=== PATIENT | male | born 1985 | race African-American/Black ===

== ENCOUNTER 2017-03-30 08:26 | Emergency (ER) | payer OTHER ==
[~2017-03-30] VITALS: Ht 177.8 cm; Wt 81.6 kg
[2017-03-30 08:27] VITALS: BP 180/113; Ht 177.8 cm; Wt 81.6 kg
== END 2017-03-30 09:34 | disposition home or self-care (01) ==
LOC: ED 08:26
DX: Z02.89 Encounter for other administrative examinations (principal)
CPT/HCPCS: 83880

== ENCOUNTER 2017-07-11 09:02 | Inpatient (IN) | payer OTHER ==
[~2017-07-11] VITALS: Ht 180.3 cm; Wt 78.0 kg
[2017-07-11 09:25] VITALS: Ht 180.3 cm; Wt 78.0 kg
[2017-07-11 09:59] LABS: BASOPHIL % 0.3 % (0-2); PLATELET COUNT 349 x10^3mcL (130-400)
[2017-07-11 10:01] LABS: RED CELL DISTRIBUTION WIDTH 15.7 % (11.5-14.5)
[2017-07-11 10:13] LABS: ALBUMIN 4.4 g/dL (3.4-5.0); BILIRUBIN TOTAL 0.67 mg/dL (0.20-1.00); CALCIUM 9.8 mg/dL (8.5-10.1); CARBON DIOXIDE 16.9 mmol/L (21-32); POTASSIUM SERUM 5.5 mmol/L (3.5-5.1)
[2017-07-11 10:24] LABS: TOTAL PROTEIN, SERUM 9.6 g/dL (6.4-8.2)
[2017-07-11 10:32] LABS: CREATININE SERUM 4.7 mg/dL (0.7-1.3)
[2017-07-11 13:19] LABS: UA SPECIFIC GRAVITY 1.025 (1.005-1.035); microscopic required? YES; urine erythrocyte 2+ (NEGATIVE)
[2017-07-11 13:24] LABS: PHOSPHOROUS 7.3 mg/dL (2.5-4.9)
[2017-07-11 13:29] LABS: T3 TOTAL 0.9 ng/mL
[2017-07-11 13:34] LABS: MAGNESIUM 4.4 mg/dL (1.8-2.4)
[2017-07-11 13:35] LABS: FREE T4 1.35 ng/dL (0.76-1.46); FREE THYROXINE INDEX 3.3 ug/dL (1.4-4.5); T4(THYROXINE) 9.5 ug/dL (4.7-13.3)
[2017-07-11 15:21] VITALS: BP 132/69
[2017-07-11 16:19] VITALS: BP 132/69
[2017-07-11 16:30] LABS: AMPHETAMINE QUAL UR NONE DETECTED (NEG <=1000)
[2017-07-11 18:24] LABS: ALBUMIN 3.6 g/dL (3.4-5.0); CALCIUM 8.8 mg/dL (8.5-10.1); CARBON DIOXIDE 20.3 mmol/L (21-32); CHLORIDE SERUM 129 mmol/L (98-107); CREATININE SERUM 3.1 mg/dL (0.7-1.3); GFR1 25 mL/min; GLUCOSE SERUM 97 mg/dL (74-106); PHOSPHOROUS 7.5 mg/dL (2.5-4.9); POTASSIUM SERUM 5.3 mmol/L (3.5-5.1)
[2017-07-11 18:26] LABS: SODIUM SERUM 164 mmol/L (136-145)
[2017-07-11 19:30] VITALS: BP 154/93
[2017-07-11 23:06] VITALS: BP 127/79
[2017-07-12 03:21] VITALS: BP 136/78
[2017-07-12 05:44] LABS: BASOPHIL % 0.3 % (0-2); PLATELET COUNT 245 x10^3mcL (130-400)
[2017-07-12 06:09] LABS: CALCIUM 8.4 mg/dL (8.5-10.1); CARBON DIOXIDE 28.6 mmol/L (21-32); CREATININE SERUM 1.7 mg/dL (0.7-1.3); MAGNESIUM 3.2 mg/dL (1.8-2.4); PHOSPHOROUS 4.6 mg/dL (2.5-4.9); POTASSIUM SERUM 4.9 mmol/L (3.5-5.1)
[2017-07-12 07:28] VITALS: BP 139/81
[2017-07-12] MEDS ORDERED: LITHIUM CARBON300 M1 PO (09:21)
[2017-07-12] MEDS ORDERED: ABILIFY10 M2 PO (09:22)
[2017-07-12] MEDS ORDERED: ABILIFY15 M1 PO (09:22)
[2017-07-12 11:05] LABS: BILIRUBIN DIRECT 0.11 mg/dL (0.0-0.2); BILIRUBIN TOTAL 0.5 mg/dL (0.20-1.00); TOTAL PROTEIN, SERUM 6.9 g/dL (6.4-8.2)
[2017-07-12 11:08] LABS: ALBUMIN 3.1 g/dL (3.4-5.0)
[2017-07-12 11:11] VITALS: BP 132/75
[2017-07-12 15:27] VITALS: BP 114/76
[2017-07-12 19:21] VITALS: BP 133/78
[2017-07-12 23:32] VITALS: BP 141/79
[2017-07-13 03:09] VITALS: BP 138/81
[2017-07-13 05:35] LABS: BASOPHIL % 0.2 % (0-2); PLATELET COUNT 195 x10^3mcL (130-400)
[2017-07-13 05:41] LABS: RED CELL DISTRIBUTION WIDTH 15.1 % (11.5-14.5)
[2017-07-13 05:53] LABS: CALCIUM 8.2 mg/dL (8.5-10.1); CARBON DIOXIDE 30.7 mmol/L (21-32); CHLORIDE SERUM 114 mmol/L (98-107); CREATININE SERUM 1.1 mg/dL (0.7-1.3); GFR1 > 60 mL/min; GLUCOSE SERUM 101 mg/dL (74-106); POTASSIUM SERUM 4.3 mmol/L (3.5-5.1); SODIUM SERUM 147 mmol/L (136-145)
[2017-07-13 07:45] VITALS: BP 122/74
[2017-07-13 11:34] VITALS: BP 119/79
[2017-07-13 16:57] VITALS: BP 123/70
[2017-07-13 21:51] VITALS: BP 117/65
[2017-07-14 06:30] LABS: BASOPHIL % 0.3 % (0-2); PLATELET COUNT 195 x10^3mcL (130-400)
[2017-07-14 06:36] VITALS: BP 128/89
[2017-07-14 06:40] LABS: CALCIUM 8.6 mg/dL (8.5-10.1); CARBON DIOXIDE 29.5 mmol/L (21-32); CHLORIDE SERUM 114 mmol/L (98-107); GFR1 > 60 mL/min; GLUCOSE SERUM 93 mg/dL (74-106); MAGNESIUM 2.9 mg/dL (1.8-2.4); PHOSPHOROUS 2.6 mg/dL (2.5-4.9); POTASSIUM SERUM 4.4 mmol/L (3.5-5.1); SODIUM SERUM 147 mmol/L (136-145)
[2017-07-14 06:54] LABS: RED CELL DISTRIBUTION WIDTH 15.2 % (11.5-14.5)
[2017-07-14 09:41] VITALS: BP 118/81; BP 134/81
[2017-07-14 13:09] VITALS: BP 119/76
[2017-07-14 16:10] VITALS: BP 131/81
[2017-07-14 21:17] VITALS: BP 120/75
[2017-07-15 05:37] VITALS: BP 123/90
[2017-07-15 06:28] LABS: CALCIUM 8.5 mg/dL (8.5-10.1); CARBON DIOXIDE 24.2 mmol/L (21-32); CHLORIDE SERUM 111 mmol/L (98-107); CREATININE SERUM 0.9 mg/dL (0.7-1.3); GFR1 > 60 mL/min; GLUCOSE SERUM 94 mg/dL (74-106); MAGNESIUM 2.4 mg/dL (1.8-2.4); PHOSPHOROUS 2.9 mg/dL (2.5-4.9); POTASSIUM SERUM 4.1 mmol/L (3.5-5.1); SODIUM SERUM 142 mmol/L (136-145)
[2017-07-15 06:29] LABS: IRON 31 ug/dL (65-170); TOTAL IRON BINDING CAPACITY 150 ug/dL (250-450)
[2017-07-15 08:39] LABS: BASOPHIL % 0.2 % (0-2); PLATELET COUNT 206 x10^3mcL (130-400)
[2017-07-15 08:56] LABS: RED CELL DISTRIBUTION WIDTH 15.3 % (11.5-14.5)
[2017-07-15 09:35] VITALS: BP 135/85
[2017-07-15 11:56] LABS: RED BLOOD CELLS 4.63 M/mm3 (4.52-5.90)
[2017-07-15 12:47] VITALS: BP 124/79
[2017-07-15] MEDS ORDERED: HYDROCHLOROTH12.5 M3 PO (16:50)
[2017-07-15 17:57] VITALS: BP 135/84
== END 2017-07-15 18:09 | disposition home or self-care (01) | DRG 682 ==
LOC: ED 09:02 → DU 10:40 → IC 10:40 → DU 07-13 11:54
PROVIDERS: Emergency Medicine; Family Medicine; Family Medicine Sports Medicine
PROC: 02HV33Z Insertion of Infusion Device into Superior Vena Cava, Percutaneous Approach (ICD-10-PCS; principal; 2017-07-11)
PROC: B548ZZA Ultrasonography of Superior Vena Cava, Guidance (ICD-10-PCS; 2017-07-11)
PROC: 5A1D70Z Performance of Urinary Filtration, Intermittent, Less than 6 Hours Per Day (ICD-10-PCS; 2017-07-11)
PROC: 5A1D70Z Performance of Urinary Filtration, Intermittent, Less than 6 Hours Per Day (ICD-10-PCS; 2017-07-12)
DX: N17.0 Acute kidney failure with tubular necrosis (principal); G93.41 Metabolic encephalopathy; E87.0 Hyperosmolality and hypernatremia; E86.0 Dehydration; E87.5 Hyperkalemia; J98.2 Interstitial emphysema; F25.0 Schizoaffective disorder, bipolar type; E87.8 Other disorders of electrolyte and fluid balance, not elsewhere classified; E78.5 Hyperlipidemia, unspecified; R31.9 Hematuria, unspecified; D64.9 Anemia, unspecified; Z88.6 Allergy status to analgesic agent; Z88.5 Allergy status to narcotic agent
CPT/HCPCS: 36556; 83880; 84439; 97110-GP; 97116-GP; 97530-GP; G0480; J0515; J1170; J1630; J1642; J1644; J2060; J7030; J7040; Q0092

== ENCOUNTER 2017-08-05 12:58 | Emergency (ER) | payer OTHER ==
[~2017-08-05] VITALS: Ht 177.8 cm; Wt 80.3 kg
[~2017-08-05 12:58] MED LIST: ABILIFY10 M2 PO; ABILIFY15 M1 PO; HYDROCHLOROTH12.5 M3 PO; LITHIUM CARBON300 M1 PO
[2017-08-05 13:03] VITALS: Ht 177.8 cm; Wt 80.3 kg
[2017-08-05 14:23] LABS: BASOPHIL % 0.8 % (0-2); CALCIUM 7.7 mg/dL (8.5-10.1); CARBON DIOXIDE 26.9 mmol/L (21-32); CHLORIDE SERUM 107 mmol/L (98-107); CREATININE SERUM 0.9 mg/dL (0.7-1.3); GFR1 > 60 mL/min; GLUCOSE SERUM 71 mg/dL (74-106); PLATELET COUNT 306 x10^3mcL (130-400); POTASSIUM SERUM 3.3 mmol/L (3.5-5.1); SODIUM SERUM 141 mmol/L (136-145)
[2017-08-05 14:25] LABS: RED CELL DISTRIBUTION WIDTH 16.5 % (11.5-14.5)
[2017-08-05 14:43] LABS: ALKALINE PHOSPHATASE 79 U/L (46-116); ALT/SGPT 26 U/L (16-63); AST/SGOT 16 U/L (15-37); BILIRUBIN TOTAL 0.18 mg/dL (0.20-1.00); TOTAL PROTEIN, SERUM 6.7 g/dL (6.4-8.2)
[2017-08-05 14:45] LABS: ALBUMIN 2.9 g/dL (3.4-5.0)
[2017-08-05 15:42] VITALS: BP 115/74
[2017-08-05 16:05] LABS: UA SPECIFIC GRAVITY <=1.005 (1.005-1.035); microscopic required? YES; urine erythrocyte 2+ (NEGATIVE)
== END 2017-08-05 15:42 | disposition home or self-care (01) ==
LOC: ED 12:58
PROVIDERS: Emergency Medicine
DX: E87.6 Hypokalemia (principal); N19 Unspecified kidney failure; Z88.5 Allergy status to narcotic agent
CPT/HCPCS: J7030; Q0092

== ENCOUNTER 2017-08-06 07:08 | Emergency (ER) | payer OTHER ==
[~2017-08-06] VITALS: Ht 177.8 cm; Wt 82.5 kg
[2017-08-06 07:14] VITALS: Ht 177.8 cm; Wt 82.5 kg
[2017-08-06 09:02] LABS: BASOPHIL % 0.4 % (0-2); PLATELET COUNT 303 x10^3mcL (130-400)
[2017-08-06 09:04] LABS: CALCIUM 8.4 mg/dL (8.5-10.1); CARBON DIOXIDE 26.7 mmol/L (21-32); CHLORIDE SERUM 108 mmol/L (98-107); CREATININE SERUM 0.9 mg/dL (0.7-1.3); GFR1 > 60 mL/min; GLUCOSE SERUM 76 mg/dL (74-106); POTASSIUM SERUM 3.5 mmol/L (3.5-5.1); SODIUM SERUM 144 mmol/L (136-145)
[2017-08-06 09:05] LABS: RED CELL DISTRIBUTION WIDTH 16.5 % (11.5-14.5)
[2017-08-06 09:08] LABS: ALKALINE PHOSPHATASE 104 U/L (46-116); ALT/SGPT 42 U/L (16-63); AST/SGOT 32 U/L (15-37); BILIRUBIN TOTAL 0.16 mg/dL (0.20-1.00); LIPASE 310 IU/L (73-393); TOTAL PROTEIN, SERUM 7.4 g/dL (6.4-8.2)
[2017-08-06 09:10] LABS: ALBUMIN 3.2 g/dL (3.4-5.0); AMYLASE 249 U/L (25-115)
[2017-08-06 10:53] VITALS: BP 120/73
== END 2017-08-06 10:53 | disposition home or self-care (01) ==
LOC: ED 07:08
PROVIDERS: Emergency Medicine
DX: K52.9 Noninfective gastroenteritis and colitis, unspecified (principal); Z88.5 Allergy status to narcotic agent
CPT/HCPCS: J1885; J7030; Q0162

== ENCOUNTER 2017-12-06 14:39 | Inpatient (IN) | payer OTHER ==
[~2017-12-06] VITALS: Ht 177.8 cm; Wt 90.0 kg
[2017-12-06 14:45] VITALS: Ht 177.8 cm; Wt 90.0 kg
[2017-12-06 17:48] LABS: BASOPHIL % 0.9 % (0-2); PLATELET COUNT 277 x10^3mcL (130-400); RED CELL DISTRIBUTION WIDTH 14.4 % (11.5-14.5)
[2017-12-06 17:59] LABS: CALCIUM 7.9 mg/dL (8.5-10.1); CHLORIDE SERUM 109 mmol/L (98-107); CREATININE SERUM 1.2 mg/dL (0.7-1.3); GFR1 > 60 mL/min; GLUCOSE SERUM 101 mg/dL (74-106); POTASSIUM SERUM 3.7 mmol/L (3.5-5.1); SODIUM SERUM 142 mmol/L (136-145)
[2017-12-06 18:00] LABS: AMPHETAMINE QUAL UR POSITIVE (See below)
[2017-12-07 01:41] VITALS: BP 101/48
[2017-12-07 01:55] LABS: T3 TOTAL 1.4 ng/mL
[2017-12-07 01:57] LABS: FREE T4 1.44 ng/dL (0.76-1.46); FREE THYROXINE INDEX 3.3 ug/dL (1.4-4.5); T4(THYROXINE) 8.9 ug/dL (4.7-13.3)
[2017-12-07 02:25] LABS: UA SPECIFIC GRAVITY >=1.030 (1.005-1.035); microscopic required? YES; urine erythrocyte NEGATIVE (NEGATIVE)
[2017-12-07 03:06] LABS: MAGNESIUM 1.9 mg/dL (1.8-2.4); PHOSPHOROUS 3.6 mg/dL (2.5-4.9)
[2017-12-07 06:35] VITALS: BP 122/76
[2017-12-07 06:44] LABS: CARBON DIOXIDE 25.2 mmol/L (21-32); CHLORIDE SERUM 111 mmol/L (98-107); CREATININE SERUM 0.9 mg/dL (0.7-1.3); GFR1 > 60 mL/min; GLUCOSE SERUM 79 mg/dL (74-106); POTASSIUM SERUM 4.1 mmol/L (3.5-5.1); SODIUM SERUM 144 mmol/L (136-145)
[2017-12-07 08:04] LABS: PLATELET COUNT 239 x10^3mcL (130-400)
[2017-12-07 08:20] LABS: RED CELL DISTRIBUTION WIDTH 14.9 % (11.5-14.5)
[2017-12-07] MEDS ORDERED: DEPAKOTE500 MG PO (08:59)
[2017-12-07 09:14] VITALS: BP 123/71
[2017-12-07 11:08] LABS: BAND NEUTROPHIL 1 % (0-10); SEGMENTED NEUTROPHILS 39 % (37-75)
[2017-12-07 11:09] LABS: MONOCYTE 16 % (0-7); PLATELET MORPHOLOGY PLATELETS NORMAL; rbc morphology (normal/abnorm) NORMAL (NORMAL)
[2017-12-07 12:36] VITALS: BP 113/63
[2017-12-07 16:49] VITALS: BP 116/70
[2017-12-07 21:15] VITALS: BP 105/63
[2017-12-08 05:39] VITALS: BP 113/50
[2017-12-08 09:02] VITALS: BP 122/56
[2017-12-08 12:47] VITALS: BP 121/87
[2017-12-08 17:28] VITALS: BP 109/60
[2017-12-08 20:27] VITALS: BP 113/66
[2017-12-09 05:20] VITALS: BP 125/72
[2017-12-09 09:13] VITALS: BP 112/75
[2017-12-09 10:49] VITALS: BP 112/75
== END 2017-12-09 11:15 | disposition home or self-care (01) | DRG 885 ==
LOC: ED 14:39 → DU 12-07 00:50
PROVIDERS: Emergency Medicine; Internal Medicine
DX: F25.0 Schizoaffective disorder, bipolar type (principal); F23 Brief psychotic disorder; D64.9 Anemia, unspecified; F15.229 Other stimulant dependence with intoxication, unspecified; Z68.26 Body mass index [BMI] 26.0-26.9, adult
CPT/HCPCS: 84439; G0480